=== PATIENT | male | born 1995 | race African-American/Black ===

== ENCOUNTER 2018-01-06 18:15 | Emergency (ER) | payer SELFPAY ==
[2018-01-06 19:04] VITALS: BP 151/69
--- NOTE | 2018-01-06 19:18 | UC ---
Complaint Male HPI - HPI Summary HPI Summary: Patient presents to the with request for STD testing. He is unsure if he has been exposed. Denies any symptoms or complaints. Denies any pain or penile discharge. Denies any urinary symptoms. He has never had an STD in the past and has never been tested for HIV. He would like testing for HIV, syphilis , gonorrhea, chlamydia. He denies any known allergies. States he has had unprotected sex with more than 1 female. Test 2 months ago with negative results. - History of Current Complaint Chief Complaint: UCSTDScreening Stated Complaint: STD SCREENING Time Seen by Provider: 01/06/18 18:27 Hx Obtained From: Patient Onset/Duration: Sudden Onset Timing: Constant Severity Initially: Mild Severity Currently: None Pain Intensity: 0 Pain Scale Used: 0-10 Numeric Associated Signs And Symptoms: Positive: Negative - Risk Factors Testicular Torsion: Negative - Allergies/Home Medications Allergies/Adverse Reactions: Allergies Allergy/AdvReac Type Severity Reaction Status Date / Time No Known Allergies Allergy Verified 01/06/18 19:00 Home Medications: Home Medications NK [No Home Medications Reported] 01/06/18 [History Confirmed 01/06/18] PMH/Surg Hx/FS Hx/Imm Hx Previously Healthy: Yes - Surgical History Surgical History: None - Social History Occupation: Unemployed Alcohol Use: None Substance Use Type: Marijuana Substance Use Comment - Amount & Last Used: last used today Smoking Status (MU): Never Smoked Tobacco Review of Systems Constitutional: Negative Skin: Negative Respiratory: Negative Cardiovascular: Negative Motor: Negative Neurovascular: Negative Psychological: Negative Is Patient Immunocompromised?: No All Other Systems Reviewed And Are Negative: Yes Physical Exam Triage Information Reviewed: Yes Appearance: Well-Appearing, Well-Nourished Vital Signs: Initial Vital Signs Temp 98.2 F 01/06/18 19:00 Pulse 67 01/06/18 19:00 Resp 18 01/06/18 19:00 BP 151/69 01/06/18 19:00 Pulse Ox 98 01/06/18 19:00 Vital Signs Reviewed: Yes Eye Exam: Normal Eyes: Positive: Conjunctiva Clear Neck exam: Normal Neck: Positive: Supple, No Lymphadenopathy Respiratory Exam: Normal Respiratory: Positive: Chest non-tender, Lungs clear Cardiovascular Exam: Normal Cardiovascular: Positive: RRR, No Murmur Musculoskeletal Exam: Normal Musculoskeletal: Positive: Strength Intact Neurological Exam: Normal Neurological: Positive: Alert Psychological Exam: Normal Psychological: Positive: Normal Response To Family Skin Exam: Normal Complaint Male Course/Dx - Course Course Of Treatment: Patient was tested 2 months ago with negative results. Arrives today due to unprotected sex with a female who could've been exposed to chlamydia and gonorrhea. Denies any symptoms. He is tested today for syphilis , nausea, chlamydia, HIV. Denies any fevers, sweats, chills. He is otherwise healthy. He does not want to start treatment at this time and would like to have medications into his pharmacy for any positive results. - Differential Dx/Diagnosis Provider Diagnoses: STD screening Discharge - Discharge Plan Condition: Stable Disposition: HOME Patient Education Materials: Sexually Transmitted Diseases (ED) Referrals: No Primary Care Phys,NOPCP [Primary Care Provider] - Additional Instructions: We will call with any positive results If you do not hear from us in approximately 3 days, you can always call our office to obtain you results For any positive results, we will send prescriptions to the pharmacy of your choice
--- NOTE | 2018-01-07 17:55 | UC ---
- Progress Note Progress Note: Syphilis screen nonreactive. No change Cathy Madison PA-C
== END 2018-01-06 19:25 | disposition home or self-care (01) ==
LOC: UCEAST 18:15
DX: Z11.3 Encounter for screening for infections with a predominantly sexual mode of transmission (principal)
CPT/HCPCS: 36415; 86592; 87491; 87591; 99201; G0463

== ENCOUNTER 2019-02-27 16:46 | Emergency (ER) | payer OTHER ==
[2019-02-27 17:06] VITALS: BP 120/74
--- NOTE | 2019-02-27 17:16 | UC ---
Eye Complaint HPI - HPI Summary HPI Summary: Pt c/o sudden on bilateral eye discharge, eye redness X 1 day. - History of Current Complaint Chief Complaint: UCEye Stated Complaint: EYE IRRITATION Time Seen by Provider: 02/27/19 16:55 Hx Obtained From: Patient Onset/Duration: Sudden Onset, Lasting Days, Still Present Timing: Constant Severity Initially: Mild Severity Currently: Moderate Pain Intensity: 8 Associated Signs And Symptoms: Positive: Drainage (Purulent) - Risk Factors Penetrating Injury Risk Factor: Negative Globe Rupture Risk Factors: Negative Acute Glaucoma Risk Factors: Negative Optic Artery Occlusion Risk Factors: Negative - Allergies/Home Medications Allergies/Adverse Reactions: Allergies Allergy/AdvReac Type Severity Reaction Status Date / Time No Known Allergies Allergy Verified 02/27/19 17:02 PMH/Surg Hx/FS Hx/Imm Hx Previously Healthy: Yes - Surgical History Surgical History: Yes Surgery Procedure, Year, and Place: [facility] teeth extractions - Family History Known Family History: Positive: Cardiac Disease - Social History Occupation: Student Lives: Dormitory/Roommates Alcohol Use: Rare Substance Use Type: Marijuana Substance Use Comment - Amount & Last Used: last used today Smoking Status (MU): Never Smoked Tobacco Have You Smoked in the Last Year: No - Immunization History Vaccination Up to Date: Yes Review of Systems All Other Systems Reviewed And Are Negative: Yes Constitutional: Positive: Negative Skin: Positive: Negative Eyes: Positive: Drainage - bilateral, Eye Redness - bilateral ENT: Positive: Negative Respiratory: Positive: Negative Cardiovascular: Positive: Negative Gastrointestinal: Positive: Negative Genitourinary: Positive: Negative Motor: Positive: Negative Neurovascular: Positive: Negative Musculoskeletal: Positive: Negative Neurological: Positive: Negative Psychological: Positive: Negative Is Patient Immunocompromised?: No Physical Exam Triage Information Reviewed: Yes Appearance: Well-Appearing Vital Signs: Initial Vital Signs Temp 97.6 F 02/27/19 17:03 Pulse 70 02/27/19 17:03 Resp 16 02/27/19 17:03 BP 120/74 02/27/19 17:03 Pulse Ox 98 02/27/19 17:03 Vital Signs Reviewed: Yes Eyes: Positive: Conjunctiva Inflamed, Discharge - green ENT Exam: Normal Dental Exam: Normal Neck exam: Normal Respiratory: Positive: No respiratory distress Musculoskeletal Exam: Normal Neurological Exam: Normal Psychological Exam: Normal Skin Exam: Normal Eye Complaint Course/Dx - Differential Dx/Diagnosis Differential Diagnosis/HQI/PQRI: Conjunctivitis Provider Diagnosis: Conjunctivitis Discharge - Sign-Out/Discharge Documenting (check all that apply): Patient Departure All imaging exams completed and their final reports reviewed: No Studies - Discharge Plan Condition: Stable Disposition: HOME Prescriptions: Ofloxacin 0.3% (Eye Drop) [Ocuflox OPTH 0.3% (Eye Drop)] 2 drop BOTH EYES Q6H 7 Days #1 btl Patient Education Materials: Conjunctivitis (ED) Referrals: [facility] [Outside] - If Needed No Primary Care Phys,NOPCP [Primary Care Provider] - - Billing Disposition and Condition Condition: STABLE Disposition: Home
== END 2019-02-27 17:23 | disposition home or self-care (01) ==
LOC: UCCORT 16:46
DX: H10.33 Unspecified acute conjunctivitis, bilateral (principal)
CPT/HCPCS: 99212; G0463